=== PATIENT | male | born 1995 | race Caucasian/White ===

== ENCOUNTER 2018-04-15 01:06 | Emergency (ER) | payer OTHER ==
[2018-04-15 01:19] VITALS: BP 135/78
--- NOTE | 2018-04-15 01:52 | ED Physician Documentation ---
PD HPI NVD - Stated complaint Stated Complaint: NAUSEA,VOMITING - Chief complaint Chief Complaint: Abd Pain - History obtained from History obtained from: Patient - History of Present Illness Timing - onset: Enter time (12:30), Yesterday Timing - details: Gradual onset Pain level max: 0 Pain level now: 0 Associated symptoms: No: Fever, Abdominal pain Improved by: Other (MARS resolved with ibuprofen) Worsened by: Other (no exacerbating factors) Similar symptoms before: Has not had sx before Recently seen: Not recently seen - Additonal information Additional information: since 12:30 PM yesterday, has had nausea, vomiting which was initially associated with mild, generalized headache. Headache subsequently resolved with ibuprofen. He is active duty at [employer] and continued to have nausea while on duty tonight and was advised to go to ED for evaluation. He has been tolerating PO. Has also had 2 episodes of diarrhea Review of Systems Constitutional: denies: Fever, Chills, Sweats Cardiac: reports: Reviewed and negative Respiratory: reports: Reviewed and negative GI: reports: Nausea, Vomiting, Diarrhea. denies: Abdominal Pain, Constipation : denies: Dysuria, Frequency, Hematuria Musculoskeletal: denies: Back pain PD PAST MEDICAL HISTORY - Past Medical History Past Medical History: No - Past Surgical History Past Surgical History: No - Present Medications Home Medications: Ambulatory Orders Medication Instructions Recorded Confirmed Ondansetron Odt [Zofran] 4 mg TL Q6H PRN #10 tablet 04/15/18 - Allergies Allergies/Adverse Reactions: Allergies Allergy/AdvReac Type Severity Reaction Status Date / Time No Known Drug Allergies Allergy Verified 04/15/18 02:12 - Social History Does the pt smoke?: Yes Smoking Status: Light tobacco smoker Does the pt drink ETOH?: Yes Does the pt have substance abuse?: No - Immunizations Immunizations are current?: Yes - POLST Patient has POLST: No PD ED PE NORMAL - Vitals Vital signs reviewed: Yes - General General: Alert and oriented X 3, No acute distress, Well developed/nourished - HEENT HEENT: Moist mucous membranes - Cardiac Cardiac: RRR, No murmur - Respiratory Respiratory: No respiratory distress, Clear bilaterally - Abdomen Abdomen: Soft, Non tender Results - Vitals Vitals: Vital Signs - 24 hr 04/15/18 01:09 Temperature 36.1 C L Heart Rate 85 Respiratory 16 Rate Blood Pressure 135/78 H O2 Saturation 100 Oxygen O2 Source Room air PD MEDICAL DECISION MAKING - ED course Complexity details: reviewed results, re-evaluated patient, considered differential, d/w patient ED course: well-appearing, NAD. no clinical or HPI indicators of dehydration. no pain c/o ( including abdominal pain) and nontender on abdominal exam. given PO zofran and rx ODT zofran, d/c with instructions to return if worse - Sepsis Event Vital Signs: Vital Signs - 24 hr 04/15/18 01:09 Temperature 36.1 C L Heart Rate 85 Respiratory 16 Rate Blood Pressure 135/78 H O2 Saturation 100 Oxygen O2 Source Room air Departure - Departure Disposition: 01 Home, Self Care Clinical Impression: Gastroenteritis Condition: Good Instructions: ED Gastroenteritis Viral Follow-Up: MARIPOSA Alejo [Provider Group] (2-3 days if symptoms have not resolved) Prescriptions: Ondansetron Odt [Zofran] 4 mg TL Q6H PRN #10 tablet PRN Reason: Nausea / Vomiting Comments: You can take Imodium ([id number]) as needed for diarrhea (follow the directions on the label). Discharge Date/Time: 04/15/18 02:15
[2018-04-15] MEDS ORDERED: ONDANSETRON ODT 4 MG TABLET TL STA (02:06)
== END 2018-04-15 02:15 | disposition home or self-care (01) ==
LOC: ED 01:06
DX: K52.9 Noninfective gastroenteritis and colitis, unspecified (principal); F17.200 Nicotine dependence, unspecified, uncomplicated
CPT/HCPCS: 99283; Q0162